=== PATIENT | male | born 1960 | race Caucasian/White ===

== ENCOUNTER → 2018-07-08 | Outpatient (CLI) | payer OTHER ==
--- NOTE | 2018-07-08 15:56 | US ---
EXAMINATION TYPE: US venous doppler duplex LE LT DATE OF EXAM: 07/08/2018 3:40 PM COMPARISON: US 01/30/2016 CLINICAL HISTORY: R60.0 LOCALIZED EDEMA. Difficult exam due to patient body habitus SIDE PERFORMED: Left TECHNIQUE: The lower extremity deep venous system is examined utilizing real time linear array sonog cheryl with graded compression, doppler sonography and color-flow sonography. VESSELS IMAGED: External Iliac Vein (EIV) Common Femoral Vein Deep Femoral Vein Greater Saphenous Vein * Femoral Vein Popliteal Vein Small Saphenous Vein * Proximal Calf Veins (* superficial vessels) Left Leg: Negative for DVT IMPRESSION: 1. No diagnostic evidence of DVT as visualized.
--- NOTE | 2018-07-08 16:11 | XR ---
EXAMINATION TYPE: XR chest 2V DATE OF EXAM: 07/08/2018 COMPARISON: 02/13/2017 TECHNIQUE: PA and lateral views submitted. HISTORY: Shortness of breath FINDINGS: The lungs are clear and there is no pneumothorax, pleural effusion, or focal pneumonia. Arthropathy of the AC joints. Bilateral pleural thickening. Mild hyperinflation correlate for COPD. Hypertrophic and degenerative change of the spine. IMPRESSION: 1. No acute process.
== END | disposition home or self-care (01) ==
LOC: RADUSWWP 15:17
PROVIDERS: ATTEND Family Medicine
DX: R60.0 Localized edema (principal)
CPT/HCPCS: 71046

== ENCOUNTER → 2018-10-22 | Outpatient (CLI) | payer OTHER ==
--- NOTE | 2018-10-22 20:20 | CONS ---
CONSULTATION DATE OF SERVICE: 10/22/2018 This patient is a 57-year-old gentleman who has been evaluated in the sleep center for possible obstructive sleep apnea-hypopnea syndrome. HISTORY OF PRESENT ILLNESS/SLEEP-WAKE EVALUATION: Patient usually goes to bed around 1 or 2 a.m. and gets up in the morning at 10 a.m. No problems with falling asleep, although he has a TV set in the bedroom. He sleeps on the side and back positions with loud snoring, witnessed episodes of stopped breathing during sleep and awakenings from sleep with dry mouth, choking, gasping for air, sleeptalking up to 4 times per night and up to 2 episodes of nocturia. During the night the patient has leg cramps, and also he has flail-like movements of his arms during sleep. No history of hypnagogic hallucinations, sleep paralysis or cataplexy. In the morning the patient wakes up tired, falling asleep during the day. [place] Sleepiness Scale is significantly increased at 17. Usually no dreams during naps. He does not feel refreshed after naps. He may take 2 naps a day. Problems with memory, irritability and depression during the day. PAST MEDICAL HISTORY: 1. Hypertension. 2. Diabetes. 3. Swelling of legs. 4. COPD. PAST SURGICAL HISTORY: 1. Cholecystectomy. 2. Right foot surgery. MEDICATIONS: 1. Metformin. 2. Lisinopril. 3. Furosemide. 4. Potassium supplement. 5. Fish oil. SOCIAL HISTORY: Negative for smoking or using alcohol. The patient never smoked. FAMILY HISTORY: Hypertension, heart problems, hyperlipidemia, emphysema, headaches, cancer, diabetes, acid reflux. REVIEW OF SYSTEMS: Multiple awakenings from sleep, sleepiness during the day, leg cramps, movements of arms during sleep. PHYSICAL EXAMINATION: GENERAL: A pleasant gentleman without distress. VITAL SIGNS: BP 152/92, HR 78, RR 18, height 5 feet 5 inches, weight 262.4, temperature 98.0, oxygen saturation at room air 96%. HEENT: PERRLA, EOMI. Evaluation of oropharynx showed tongue protrudes midline. Extremely low position of soft palate. Mallampati IV. Restriction of nasal breathing bilaterally. NECK: Supple. No JVD. Thyroid is not palpable. Wide neck; 20 inches in circumference. LUNGS: Clear to percussion and to auscultation. Good air exchange. No wheezing or rhonchi. HEART: S1, S2 regular. No murmurs, gallops or rubs. ABDOMEN: Obese. EXTREMITIES: No clubbing or cyanosis. SEBD TEACHER: Awake, alert, and oriented X3. Cranial nerves 2 to 7 intact. There is no fasciculation or atrophy. noted. No focal deficits observed. IMPRESSION: 1. Loud snoring, witnessed episodes of stopped breathing during sleep, extremely low soft palate, Mallampati IV, significant excessive daytime sleepiness, [place] Sleepiness Scale 17, wide neck, 20 inches in circumference; obstructive sleep apnea- hypopnea syndrome. 2. Obesity; body mass index 43.5. 3. Hypertension. 4. Kicking at night; periodic limb movements. 5. Some flail movements of arms during the night; possible REM-sleep behavioral disorder. 6. Status post cholecystectomy. 7. History of chronic obstructive pulmonary disease. 8. Status post right foot surgery. PLAN: 1. Polysomnography for evaluation of patient's breathing during sleep. 2. CPAP/BiPAP titration if sleep study confirms obstructive sleep apnea-hypopnea syndrome. 3. Preferable position during sleep on the side. 4. No driving if patient feels any sleepiness. 5. I will see patient for follow up visit to explain results of testing and following plan. Thank you very much for referring this patient for consultation. Sincerely, Skip Alonso MD, PhD, FAASM Diplomat of [place] [employer] [place] [employer] Person of [facility] [place] MMODL / IJN: [id number] /
== END | disposition home or self-care (01) ==
LOC: SLEEP 14:08
PROVIDERS: ATTEND Internal Medicine
DX: G47.33 Obstructive sleep apnea (adult) (pediatric) (principal); E66.9 Obesity, unspecified; I10 Essential (primary) hypertension; E11.9 Type 2 diabetes mellitus without complications; G47.61 Periodic limb movement disorder; Z68.41 Body mass index [BMI] 40.0-44.9, adult; Z87.09 Personal history of other diseases of the respiratory system; Z90.49 Acquired absence of other specified parts of digestive tract; Z98.890 Other specified postprocedural states; Z79.84 Long term (current) use of oral hypoglycemic drugs; Z79.899 Other long term (current) drug therapy
CPT/HCPCS: 99211

== ENCOUNTER → 2019-02-26 | Outpatient (CLI) | payer OTHER ==
--- NOTE | 2019-02-26 17:10 | PN ---
PROGRESS NOTE DATE OF SERVICE: 02/26/2019 This patient is a 58-year-old gentleman who has been followed in Sleep Center for treatment of obstructive sleep apnea-hypopnea syndrome. Recently the patient had a sleep study which showed obstructive sleep apnea-hypopnea syndrome with apnea-hypopnea index 29.4 and oxygen desaturation to 73%. Subsequently he was started on treatment with CPAP. According to the patient, he is able to use the CPAP equipment every night and at present no significant problems with his mask; but according to his , there is a leak from his mask. The patient did not bring his machine with him, so I cannot check it right now, but again, according to the patient, he feels better with the machine. [place] Sleepiness Scale today is still increased at 16. MEDICATIONS: 1. Metformin. 2. Lisinopril. 3. Furosemide. 4. Potassium supplement. PHYSICAL EXAMINATION: GENERAL: A pleasant patient in no distress. VITAL SIGNS: BP 146/88, HR 91, RR 16, weight 260.0, temperature 98.1, oxygen saturation at room air 94%. HEENT: PERRLA, EOMI. Evaluation of oropharynx showed tongue protrudes midline. Extremely low position of soft palate. Mallampati IV. NECK: Supple. No JVD. Thyroid is not palpable. LUNGS: Clear to percussion and to auscultation. Good air exchange. No wheezing or rhonchi. HEART: S1, S2 regular. No murmurs, gallops or rubs. ABDOMEN: Obese. EXTREMITIES: No clubbing or cyanosis. WATCHER LOOKOUT TOWER: Awake, alert, and oriented X3. Cranial nerves 2 to 7 intact. There is no fasciculation or atrophy. noted. No focal deficits observed. IMPRESSION: 1. Moderate, close to severe obstructive sleep apnea-hypopnea syndrome with apnea- hypopnea index 29.4 and oxygen desaturation to 73%. The patient was started on treatment with CPAP and is trying to use it every night, benefitting from treatment; feels better. 2. Obesity. 3. Diabetes mellitus. 4. Hypertension. 5. Severe periodic limb movements during titration and mild periodic limb movements during diagnostic night. 6. Chronic obstructive pulmonary disease. 7. History of arm movements before; possibly REM sleep behavior disorder. 8. Status post cholecystectomy. 9. Status post right foot surgery. PLAN: 1. Patient will continue to use CPAP equipment every night for the whole night. 2. Will check the possibility of using a different style of mask to prevent leaks. 3. Losing weight. 4. Sleep hygiene with regular time in bed for 7-1/2 to 8 hours. 5. No driving if feeling any sleepiness. 6. We will try to get information from [facility] with a reading from his machine. 7. Follow-up visit in 4-6 weeks. Thank you very much for allowing me to participate in the management of your patient. Sincerely, Skip Alonso MD, PhD, FAASM Diplomat of [place] [employer] [employer] [facility]pper of [facility] [place] MMODL / IJN: [id number] /
== END | disposition home or self-care (01) ==
LOC: SLEEP 14:47
PROVIDERS: ATTEND Internal Medicine
DX: G47.33 Obstructive sleep apnea (adult) (pediatric) (principal); E11.9 Type 2 diabetes mellitus without complications; I10 Essential (primary) hypertension; J44.9 Chronic obstructive pulmonary disease, unspecified; E66.9 Obesity, unspecified; Z90.49 Acquired absence of other specified parts of digestive tract; Z99.89 Dependence on other enabling machines and devices; Z79.84 Long term (current) use of oral hypoglycemic drugs; Z79.899 Other long term (current) drug therapy; Z98.890 Other specified postprocedural states

== ENCOUNTER → 2019-04-07 | Outpatient (CLI) | payer OTHER ==
[2019-04-07 11:14] LABS: Basophils # (A) 0.1 k/uL (0-0.2); Basophils % (A) 1 %; Eosinophils # (A) 0.4 k/uL (0-0.7); Eosinophils % (A) 5 %; HCT 40.9 % (39.0-53.0); Lymphocytes # (A) 1.6 k/uL (1.0-4.8); Lymphocytes % (A) 19 %; MCH 30.1 pg (25.0-35.0); MCHC 34.2 g/dL (31.0-37.0); Mean Platelet Volume 7.7; Monocytes # (A) 0.5 k/uL (0-1.0); Monocytes % (A) 6 %; Neutrophils # (A) 5.4 k/uL (1.3-7.7); Neutrophils % (A) 67 %; Platelet Count 166 k/uL (150-450); RBC 4.64 m/uL (4.30-5.90); RDW 12.5 % (11.5-15.5); WBC 8.1 k/uL (3.8-10.6)
[2019-04-07 16:58] LABS: African American GFR (CKD) 70.7 (60.0-200.0); Albumin 4.6 g/dL (3.80-4.90); Albumin/Globulin Ratio 2.19 (1.60-3.17); Anion Gap 10.6 mmol/L (4.00-12.00); BUN/Creat Ratio 26.15 Ratio (12.00-20.00); Calcium 9.5 mg/dL (8.7-10.3); Carbon Dioxide 25.4 mmol/L (21.6-31.8); Globulin 2.1 g/dL (1.6-3.3); LDL Cholesterol,Calculated 90.2 mg/dL (0.0-131.0); Potassium 4.2 mmol/L (3.5-5.5); Total Bilirubin 0.7 mg/dL (0.3-1.2); Total Protein 6.7 g/dL (6.2-8.2); VLDL Calculation 57.8 mg/dL (5.00-40.00)
== END | disposition home or self-care (01) ==
LOC: LABWHC1 10:16
PROVIDERS: ATTEND Physician Assistant
DX: E11.9 Type 2 diabetes mellitus without complications (principal)
CPT/HCPCS: 36415; 80053; 80061; 83036; 85025

== ENCOUNTER → 2022-09-19 | Outpatient (CLI) | payer OTHER ==
--- NOTE | 2022-09-19 15:34 | US ---
EXAMINATION TYPE: US abdomen complete DATE OF EXAM: 09/19/2022 COMPARISON: NONE CLINICAL INDICATION: Male, 61 years old with history of R94.5; Abnormal labs. GB removed x 7 years a go. TECHNIQUE: Multiple sonographic images of the abdomen are obtained. FINDINGS: EXAM MEASUREMENTS: Liver Length: 14.9 cm CBD: 0.5 cm Spleen: 12.7 cm Right Kidney: 9.9 x 5.0 x 5.5 cm Left Kidney: 11.4 x 5.1 x 5.5 cm Pancreas: Head and tail obscured by overlying bowel gas, echogenic in appearance Liver: wnl Gallbladder: Surgically absent Evidence for sonographic Gannon's sign: neg CBD: wnl Spleen: wnl Right Kidney: No hydronephrosis or masses seen Left Kidney: Upper lateral hypoechoic exophytic lesion= 2.8 x 2.8 x 2.5 cm . This is not a simple cy st. Upper IVC: limited visualization Abd Aorta: Mid and distal obscured by overlying bowel gas IMPRESSION: 1. Hypoechoic lesion superior pole left kidney. Additional workup with contrast CT is recommended.
[2022-09-19 16:02] LABS: ALT 106 U/L (10-49); AST 45 U/L (14-35); Albumin 4.5 d/dL (3.8-4.9); Albumin/Globulin Ratio 1.61 Ratio (1.60-3.17); Alkaline Phosphatase 128 U/L (41-126); BUN/Creat Ratio 18.62 Ratio (12.00-20.00); Blood Urea Nitrogen 24.2 mg/dL (9.0-27.0); Calcium 9.4 mg/dL (8.7-10.3); Chloride 104 mmol/L (96-109); Chol/HDL Ratio 3.49 Ratio; Globulin 2.8 d/dL (1.6-3.3); Glucose 121 mg/dL (70-110); LDL Cholesterol,Calculated 70.1 mg/dL (0.0-131.0); Potassium 4.3 mmol/L (3.5-5.5); Sodium 141 mmol/L (135-145); T4, Free (Free Thyroxine) 1.12 ng/dL (0.80-1.80); Total Bilirubin 0.5 mg/dL (0.3-1.2); Total Protein 7.3 d/dL (6.2-8.2)
== END | disposition home or self-care (01) ==
LOC: RADUSWWP 06:49
PROVIDERS: ATTEND Family Medicine
DX: Z12.5 Encounter for screening for malignant neoplasm of prostate (principal); E78.5 Hyperlipidemia, unspecified; E11.9 Type 2 diabetes mellitus without complications; N28.89 Other specified disorders of kidney and ureter; R94.5 Abnormal results of liver function studies
CPT/HCPCS: 76700; 80053; 80061; 83036; 84153; 84439; 84443; 85025

== ENCOUNTER → 2022-09-29 | Outpatient (CLI) | payer OTHER ==
[2022-09-29 23:01] LABS: Basophils # (A) 0.07 X 10*3/uL (0.00-0.10); Basophils % (A) 0.9 %; Eosinophils # (A) 0.26 X 10*3/uL (0.04-0.35); Eosinophils % (A) 3.3 %; HCT 45.1 % (39.6-50.0); HGB 14.6 d/dL (12.0-15.0); Lymphocytes # (A) 1.86 X 10*3/uL (0.90-5.00); Lymphocytes % (A) 23.5 %; MCH 29.3 pg (27.0-32.0); MCHC 32.4 d/dL (32.0-37.0); MCV 90.6 FL (80.0-97.0); Mean Platelet Volume 11.1 FL (9.5-12.2); Monocytes # (A) 0.73 X 10*3/uL (0.20-1.00); Monocytes % (A) 9.2 %; NRBC Per 100 WBC 0 X 10*3/uL (0.00-0.01); Neutrophils # (A) 4.96 X 10*3/uL (1.80-7.70); Neutrophils % (A) 62.5 %; Platelet Count 129 X 10*3/uL (140-440); RBC 4.98 X 10*6/uL (4.40-5.60); WBC 7.93 X 10*3/uL (4.50-10.00)
== END | disposition home or self-care (01) ==
LOC: LABWHC1 11:05
PROVIDERS: ATTEND Family Medicine
DX: E78.5 Hyperlipidemia, unspecified (principal)
CPT/HCPCS: 36415; 85025

== ENCOUNTER → 2022-11-30 | Outpatient (CLI) | payer OTHER ==
[2022-11-30 12:34] LABS: African American GFR (CKD) 59 (>60 ml/min/1.73 sqM); Blood Urea Nitrogen 28 mg/dL (9-20); Non-African American GFR(CKD) 51 (>60 ml/min/1.73 sqM)
--- NOTE | 2022-12-02 11:43 | CT ---
EXAMINATION TYPE: CT abdomen w con DATE OF EXAM: 11/30/2022 COMPARISON: Ultrasound 09/19/2022 HISTORY: 62-year-old male N28.89, left renal mass TECHNIQUE: Contiguous axial scanning of the abdomen following administration of 100 ml Isovue 300 IV contrast. Delayed images through the kidneys and coronal/sagittal reconstructions performed. CT DLP: 1759.4 mGycm Automated exposure control for dose reduction was used. FINDINGS: Heart normal size without pericardial effusion. Hazy atelectasis in the lower lungs without pleural effusion. No focal liver lesion or biliary ductal dilatation. Portal venous system is patent. Cholecystectomy c lips. Slight thickening of the adrenal glands without discrete nodularity. Right kidney, spleen, and pancreas within normal limits. There is an exophytic cortical lesion posterior left kidney measuring 2.8 cm that shows no enhancemen t and low attenuation compatible with a benign cortical cyst. No dilated small bowel, free fluid, or free air. No mesenteric or retroperitoneal lymphadenopathy. Mo derate stool burden. Left-sided colonic diverticulosis. No pericolic inflammatory change. Moderately redundant sigmoid colon. Pelvis not imaged. Bones: Facet arthropathy lumbar spine and moderate degenerative disc disease L5-S1. IMPRESSION: 1. EXOPHYTIC CORTICAL LESION POSTERIOR LEFT KIDNEY MEASURING 2.8 CM CORRESPONDING TO THE ULTRASOUND F INDING. FINDINGS ARE COMPATIBLE WITH A BENIGN RENAL CORTICAL CYST. 2. MODERATE STOOL BURDEN. LEFT-SIDED COLONIC DIVERTICULOSIS.
== END | disposition home or self-care (01) ==
LOC: RADCTMAIN 10:51
PROVIDERS: ATTEND Family Medicine
DX: N28.89 Other specified disorders of kidney and ureter (principal); K57.30 Diverticulosis of large intestine without perforation or abscess without bleeding
CPT/HCPCS: 82565; 84520; 74160; 36415; Q9967

== ENCOUNTER 2023-06-03 22:50 | Inpatient (IN) | payer OTHER ==
--- NOTE | 2023-06-03 23:24 | XR ---
EXAMINATION TYPE: XR chest 2V DATE OF EXAM: 06/03/2023 COMPARISON: Chest x-ray July 08, 2018 HISTORY: Cough TECHNIQUE: Frontal and lateral views of the chest are obtained. FINDINGS: There is no suspicious new focal air space opacity, pleural effusion, or pneumothorax seen . The cardiac silhouette size remains within normal limits. The osseous structures are intact. IMPRESSION: No acute pulmonary infiltrate. No significant change from prior.
--- NOTE | 2023-06-04 00:01 | ED ---
General Adult HPI - General Chief complaint: Shortness of Breath Stated complaint: Difficulty Breathing, chills, dry mouth, fatigue Time Seen by Provider: 06/03/23 23:38 Source: patient, RN notes reviewed, old records reviewed Mode of arrival: ambulatory Limitations: no limitations - History of Present Illness Initial comments: 62-year-old male presenting with fatigue, chills, shortness of breath. Symptoms have been present for the past several days. History of hypertension and diabetes. No history of CAD. No history of DVT or PE. Patient reports fatigue and generalized weakness as well. He has had some intermittent central chest pain as well. Patient also complains of cloudy urine and dysuria. No abdominal pain. - Related Data Home Medications Medication Instructions Recorded Confirmed lisinopriL [Prinivil] 20 mg PO HS 12/31/14 08/12/18 metFORMIN HCL [Glucophage] 500 mg PO BID 08/12/18 08/12/18 Allergies Allergy/AdvReac Type Severity Reaction Status Date / Time No Known Allergies Allergy Verified 06/03/23 23:05 Review of Systems ROS Statement: Those systems with pertinent positive or pertinent negative responses have been documented in the HPI. ROS Other: All systems not noted in ROS Statement are negative. Past Medical History Past Medical History: Diabetes Mellitus, Hypertension Additional Past Medical History / Comment(s): NAUSEA, BLOOD IN STOOL History of Any Multi-Drug Resistant Organisms: MRSA Date of last positivie culture/infection: 02/22/21 MDRO Source:: MRSA LEG Past Surgical History: Cholecystectomy Past Anesthesia/Blood Transfusion Reactions: No Reported Reaction Past Psychological History: No Psychological Hx Reported Smoking Status: Never smoker Past Alcohol Use History: Rare Past Drug Use History: None Reported - Past Family History Brother(s) Family Medical History: Cancer Additional Family Medical History / Comment(s): PROSTATE Father Additional Family Medical History / Comment(s): AORTIC ANEURYSM General Exam Limitations: no limitations General appearance: alert, in no apparent distress Head exam: Present: atraumatic, normocephalic Eye exam: Present: normal appearance, PERRL ENT exam: Present: normal exam Neck exam: Present: normal inspection. Absent: tenderness, meningismus Respiratory exam: Present: decreased breath sounds. Absent: respiratory dist ress, wheezes Cardiovascular Exam: Present: normal rhythm, tachycardia Extremities exam: Present: normal capillary refill, pedal edema Neurological exam: Present: alert, oriented X3, CN II-XII intact. Absent: motor sensory deficit Psychiatric exam: Present: normal affect, normal mood Skin exam: Present: warm, dry, intact. Absent: cyanosis, diaphoretic Course Vital Signs 06/03/23 06/04/23 06/04/23 22:57 00:26 00:30 Temperature 98.2 F Pulse Rate 132 H 125 H 118 H Respiratory 24 24 26 H Rate Blood Pressure 126/81 115/74 115/74 O2 Sat by Pulse 95 95 96 Oximetry 06/04/23 06/04/23 06/04/23 00:32 01:52 02:00 Temperature 100.3 F H 100.4 F H Pulse Rate 112 H 111 H Respiratory 24 24 Rate Blood Pressure 93/60 96/52 O2 Sat by Pulse 97 95 Oximetry 06/04/23 02:30 Temperature Pulse Rate 107 H Respiratory 25 H Rate Blood Pressure 94/62 O2 Sat by Pulse 97 Oximetry Medical Decision Making - Medical Decision Making Was pt. sent in by a medical professional or institution (JOSUE Ortiz, COMPOUND WORKER, urgent care, hospital, or long term...) When possible be specific @ -No Did you speak to anyone other than the patient for history (EMS, parent, family, police, friend...)? What history was obtained from this source @ -No Did you review nursing and triage notes (agree or disagree)? Why? @ -I reviewed and agree with nursing and triage notes Were old charts reviewed (outside hosp., previous admission, EMS record, old EKG, old radiological studies, urgent care reports/EKG's, long term records)? Report findings @ -No old charts were reviewed Differential Diagnosis (chest pain, altered mental status, abdominal pain women, abdominal pain men, vaginal bleeding, weakness, fever, dyspnea, syncope, headache, dizziness, GI bleed, back pain, seizure, CVA, palpatations, mental health, musculoskeletal)? @ -Differential Weakness: Hypoglycemia, shock, sepsis, hyponatremia, anemia, infection, UT, ETOH, adverse medicine reaction, overdose, stroke, this is not meant to be an all-inclusive list. EKG interpreted by me (3pts min.). @ -[Sinus tachycardia, right bundle branch block, rate of 125, ME interval 145, QRS duration [address] segment elevation. X-rays interpreted by me (1pt min.). @ -Chest x-ray negative for acute cardiopulmonary findings CT interpreted by me (1pt min.). @CT angiogram chest negative for pulmonary embolism U/S interpreted by me (1pt. min.). @ -[None done What testing was considered but not performed or refused? (CT, X-rays, U/S, labs)? Why? @ -None What meds were considered but not given or refused? Why? @ -None Did you discuss the management of the patient with other professionals (professionals i.e. , PA, COMPOUND WORKER, lab, RT, psych nurse, social media editor, chargemaster analyst, teacher, employee service officer, shoe caser)? Give summary @ -[EMH. Was smoking cessation discussed for >3mins.? @ -No Was critical care preformed (if so, how long)? @ -[Yes, 35 minutes Were there social determinants of health that impacted care today? How? (Homelessness, low income, unemployed, alcoholism, drug addiction, transportation, low edu. Level, literacy, decrease access to med. care, detention, rehab)? @ -No Was there de-escalation of care discussed even if they declined (Discuss DNR or withdrawal of care, Hospice)? DNR status @ -No What co-morbidities impacted this encounter? (DM, HTN, Smoking, COPD, CAD, Cancer, CVA, ARF, Chemo, Hep., AIDS, mental health diagnosis, sleep apnea, morbid obesity)? @Hypertension and diabetes.] Was patient admitted / discharged? Hospital course, mention meds given and route, prescriptions, significant lab abnormalities, going to OR and other pertinent info. @ -62-year-old male presenting with weakness, chills, dyspnea. Patient is tachycardic with low-grade fever. Workup is initiated he has a significant leukocytosis at 18. Stable hemoglobin. Mild lactic acid, mild transaminitis. Troponin and BNP are negative. D-dimer is elevated at 1.8. CT angiogram is negative for pulmonary embolism. Patient treated with antipyretics, IV fluids and IV antibiotics. He has had dysuria as well as cloudy urine and urinalysis is positive. Covered with ceftriaxone. Admitted for dehydration, UTI, sepsis. Undiagnosed new problem with uncertain prognosis? @ -No Drug Therapy requiring intensive monitoring for toxicity (Heparin, Nitro, Insulin, Cardizem)? @ -No Were any procedures done? @ -No Diagnosis/symptom? @ -[UTI with sepsis Acute, or Chronic, or Acute on Chronic? @ -Default Uncomplicated (without systemic symptoms) or Complicated (systemic symptoms)? @ -[Complicated Side effects of treatment? @ -No Exacerbation, Progression, or Severe Exacerbation? @ -No Poses a threat to life or bodily function? How? (Chest pain, USA, UT, pneumonia, PE, COPD, DKA, ARF, appy, cholecystitis, CVA, Diverticulitis, Homicidal, Suicidal, threat to staff... and all critical care pts) @ -[Yes, sepsis - Lab Data Result diagrams: 06/04/23 00:15 06/04/23 00:15 Lab Results 06/04/23 06/04/23 06/04/23 Range/Units 00:15 00:15 00:15 WBC 18.5 H (3.8-10.6) k/uL RBC 4.69 (4.30-5.90) m/uL Hgb 14.6 (13.0-17.5) gm/dL Hct 42.5 (39.0-53.0) % MCV 90.6 (80.0-100.0) fL MCH 31.0 (25.0-35.0) pg MCHC 34.2 (31.0-37.0) g/dL RDW 12.3 (11.5-15.5) % Plt Count 122 L (150-450) k/uL MPV 8.0 Neutrophils % 95 % Lymphocytes % 2 % Monocytes % 3 % Eosinophils % 1 % Basophils % 0 % Neutrophils # 17.5 H (1.3-7.7) k/uL Lymphocytes # 0.3 L (1.0-4.8) k/uL Monocytes # 0.5 (0-1.0) k/uL Eosinophils # 0.1 (0-0.7) k/uL Basophils # 0.1 (0-0.2) k/uL PT 10.4 (10.0-12.5) sec INR 0.9 (<1.2) APTT 23.2 (22.0-30.0) sec D-Dimer 1.86 H (<0.60) mg/L FEU Sodium (137-145) mmol/L Potassium (3.5-5.1) mmol/L Chloride (98-107) mmol/L Carbon Dioxide (22-30) mmol/L Anion Gap mmol/L BUN (9-20) mg/dL Creatinine (0.66-1.25) mg/dL Est GFR (CKD-EPI)AfAm (>60 ml/min/1.73 sqM) Est GFR (CKD-EPI)NonAf (>60 ml/min/1.73 sqM) Glucose (74-99) mg/dL Lactic Ac Sepsis Rflx Plasma Lactic Acid Corey (0.7-2.0) mmol/L Calcium (8.4-10.2) mg/dL Magnesium (1.6-2.3) mg/dL Total Bilirubin (0.2-1.3) mg/dL AST (17-59) U/L ALT (4-49) U/L Alkaline Phosphatase (38-126) U/L Troponin I (0.000-0.034) ng/mL NT-Pro-B Natriuret Pep pg/mL Total Protein (6.3-8.2) g/dL Albumin (3.5-5.0) g/dL Urine Color Urine Appearance (Clear) Urine pH (5.0-8.0) Ur Specific [place] (1.001-1.035) Urine Protein (Negative) Urine Glucose (UA) (Negative) Urine Ketones (Negative) Urine Blood (Negative) Urine Nitrite (Negative) Urine Bilirubin (Negative) Urine Urobilinogen (<2.0) mg/dL Ur Leukocyte Esterase (Negative) Urine RBC (0-5) /hpf Urine WBC (0-5) /hpf Ur Squamous Epith Cells (0-4) /hpf Urine Bacteria (None) /hpf Urine Mucus (None) /hpf Influenza Type A (PCR) Not Detected (Not Detectd) Influenza Type B (PCR) Not Detected (Not Detectd) RSV (PCR) Not Detected (Not Detectd) SARS-CoV-2 (PCR) Not Detected (Not Detectd) 06/04/23 06/04/23 06/04/23 Range/Units 00:15 00:15 00:15 WBC (3.8-10.6) k/uL RBC (4.30-5.90) m/uL Hgb (13.0-17.5) gm/dL Hct (39.0-53.0) % MCV (80.0-100.0) fL MCH (25.0-35.0) pg MCHC (31.0-37.0) g/dL RDW (11.5-15.5) % Plt Count (150-450) k/uL MPV Neutrophils % % Lymphocytes % % Monocytes % % Eosinophils % % Basophils % % Neutrophils # (1.3-7.7) k/uL Lymphocytes # (1.0-4.8) k/uL Monocytes # (0-1.0) k/uL Eosinophils # (0-0.7) k/uL Basophils # (0-0.2) k/uL PT (10.0-12.5) sec INR (<1.2) APTT (22.0-30.0) sec D-Dimer (<0.60) mg/L FEU Sodium 130 L (137-145) mmol/L Potassium 4.4 (3.5-5.1) mmol/L Chloride 100 (98-107) mmol/L Carbon Dioxide 20 L (22-30) mmol/L Anion Gap 10 mmol/L BUN 26 H (9-20) mg/dL Creatinine 1.13 (0.66-1.25) mg/dL Est GFR (CKD-EPI)AfAm 82 (>60 ml/min/1.73 sqM) Est GFR (CKD-EPI)NonAf 71 (>60 ml/min/1.73 sqM) Glucose 184 H (74-99) mg/dL Lactic Ac Sepsis Rflx Plasma Lactic Acid Corey 2.4 H* (0.7-2.0) mmol/L Calcium 9.0 (8.4-10.2) mg/dL Magnesium 1.4 L (1.6-2.3) mg/dL Total Bilirubin 1.0 (0.2-1.3) mg/dL AST 57 (17-59) U/L ALT 118 H (4-49) U/L Alkaline Phosphatase 127 H (38-126) U/L Troponin I <0.012 (0.000-0.034) ng/mL NT-Pro-B Natriuret Pep 126 pg/mL Total Protein 6.9 (6.3-8.2) g/dL Albumin 4.0 (3.5-5.0) g/dL Urine Color Urine Appearance (Clear) Urine pH (5.0-8.0) Ur Specific [place] (1.001-1.035) Urine Protein (Negative) Urine Glucose (UA) (Negative) Urine Ketones (Negative) Urine Blood (Negative) Urine Nitrite (Negative) Urine Bilirubin (Negative) Urine Urobilinogen (<2.0) mg/dL Ur Leukocyte Esterase (Negative) Urine RBC (0-5) /hpf Urine WBC (0-5) /hpf Ur Squamous Epith Cells (0-4) /hpf Urine Bacteria (None) /hpf Urine Mucus (None) /hpf Influenza Type A (PCR) (Not Detectd) Influenza Type B (PCR) (Not Detectd) RSV (PCR) (Not Detectd) SARS-CoV-2 (PCR) (Not Detectd) 06/04/23 06/04/23 06/04/23 Range/Units 00:41 03:24 03:38 WBC (3.8-10.6) k/uL RBC (4.30-5.90) m/uL Hgb (13.0-17.5) gm/dL Hct (39.0-53.0) % MCV (80.0-100.0) fL MCH (25.0-35.0) pg MCHC (31.0-37.0) g/dL RDW (11.5-15.5) % Plt Count (150-450) k/uL MPV Neutrophils % % Lymphocytes % % Monocytes % % Eosinophils % % Basophils % % Neutrophils # (1.3-7.7) k/uL Lymphocytes # (1.0-4.8) k/uL Monocytes # (0-1.0) k/uL Eosinophils # (0-0.7) k/uL Basophils # (0-0.2) k/uL PT (10.0-12.5) sec INR (<1.2) APTT (22.0-30.0) sec D-Dimer (<0.60) mg/L FEU Sodium (137-145) mmol/L Potassium (3.5-5.1) mmol/L Chloride (98-107) mmol/L Carbon Dioxide (22-30) mmol/L Anion Gap mmol/L BUN (9-20) mg/dL Creatinine (0.66-1.25) mg/dL Est GFR (CKD-EPI)AfAm (>60 ml/min/1.73 sqM) Est GFR (CKD-EPI)NonAf (>60 ml/min/1.73 sqM) Glucose (74-99) mg/dL Lactic Ac Sepsis Rflx Y Plasma Lactic Acid Corey 2.5 H* (0.7-2.0) mmol/L Calcium (8.4-10.2) mg/dL Magnesium (1.6-2.3) mg/dL Total Bilirubin (0.2-1.3) mg/dL AST (17-59) U/L ALT (4-49) U/L Alkaline Phosphatase (38-126) U/L Troponin I (0.000-0.034) ng/mL NT-Pro-B Natriuret Pep pg/mL Total Protein (6.3-8.2) g/dL Albumin (3.5-5.0) g/dL Urine Color Light Yellow Urine Appearance Clear (Clear) Urine pH 6.0 (5.0-8.0) Ur Specific [place] 1.050 H (1.001-1.035) Urine Protein Trace H (Negative) Urine Glucose (UA) Negative (Negative) Urine Ketones Negative (Negative) Urine Blood Moderate H (Negative) Urine Nitrite Negative (Negative) Urine Bilirubin Negative (Negative) Urine Urobilinogen <2.0 (<2.0) mg/dL Ur Leukocyte Esterase Large H (Negative) Urine RBC 22 H (0-5) /hpf Urine WBC 30 H (0-5) /hpf Ur Squamous Epith Cells 7 H (0-4) /hpf Urine Bacteria Rare H (None) /hpf Urine Mucus Rare H (None) /hpf Influenza Type A (PCR) (Not Detectd) Influenza Type B (PCR) (Not Detectd) RSV (PCR) (Not Detectd) SARS-CoV-2 (PCR) (Not Detectd) Disposition Clinical Impression: UTI (urinary tract infection), Sepsis Disposition: ADMITTED IP TO THIS HOSP Condition: Stable Is patient prescribed a controlled substance at d/c from ED?: No Referrals: Rui Spencer MD [Primary Care Provider] - 1-2 days Time of Disposition: 04:23
[2023-06-04] MEDS: ACETAMINOPHEN TAB 500 MG TAB PO STA ×2 (00:27→13:49)
[2023-06-04 00:44] LABS: INR 0.9 (<1.2); Partial Thromboplastin Time 23.2 sec (22.0-30.0); Prothrombin Time 10.4 sec (10.0-12.5)
[2023-06-04 00:49] LABS: ALT 118 U/L (4-49); AST 57 U/L (17-59); African American GFR (CKD) 82 (>60 ml/min/1.73 sqM); Alkaline Phosphatase 127 U/L (38-126); Blood Urea Nitrogen 26 mg/dL (9-20); Carbon Dioxide 20 mmol/L (22-30); Glucose 184 mg/dL (74-99); Magnesium 1.4 mg/dL (1.6-2.3); Non-African American GFR(CKD) 71 (>60 ml/min/1.73 sqM); Total Protein 6.9 g/dL (6.3-8.2)
[2023-06-04 00:57] LABS: Basophils # (A) 0.1 k/uL (0-0.2); Basophils % (A) 0 %; Eosinophils # (A) 0.1 k/uL (0-0.7); Eosinophils % (A) 1 %; HCT 42.5 % (39.0-53.0); HGB 14.6 gm/dL (13.0-17.5); Lymphocytes # (A) 0.3 k/uL (1.0-4.8); Lymphocytes % (A) 2 %; MCHC 34.2 g/dL (31.0-37.0); MCV 90.6 fL (80.0-100.0); Monocytes # (A) 0.5 k/uL (0-1.0); Monocytes % (A) 3 %; NT-Pro-B-Type Natriuretic Pept 126 pg/mL; Neutrophils # (A) 17.5 k/uL (1.3-7.7); Neutrophils % (A) 95 %; Platelet Count 122 k/uL (150-450); RBC 4.69 m/uL (4.30-5.90); RDW 12.3 % (11.5-15.5); WBC 18.5 k/uL (3.8-10.6)
[2023-06-04 01:05] LABS: Anion Gap 10 mmol/L; Chloride 100 mmol/L (98-107); Potassium 4.4 mmol/L (3.5-5.1); Sodium 130 mmol/L (137-145)
--- NOTE | 2023-06-04 01:46 | CT ---
EXAMINATION TYPE: CT angio chest DATE OF EXAM: 06/04/2023 COMPARISON: Chest x-ray one day earlier HISTORY: elevated d-dimer with difficulty in breathing. CT DLP: 827.2 mGycm. Automated Exposure Control for Dose Reduction was Utilized. CONTRAST: CTA scan of the thorax is performed with IV Contrast, patient injected with 100 mL of Isovue 370, pul monary embolism protocol. MIP Images are created on CT scanner and reviewed. FINDINGS: LUNGS: Mild bibasilar linear scarring and/or atelectasis. No suspicious focal consolidation. No pleur al effusion or pneumothorax seen bilaterally. MEDIASTINUM: Suboptimal study with most dense contrast in the SVC. No central acute pulmonary embolis m. Cannot entirely exclude peripheral pulmonary emboli in this exam. Ascending aorta shows some contr ast opacification. No aneurysm or dissection. Coronary artery calcification is present. There are no greater than 1 cm hilar or mediastinal lymph nodes. Small to tiny anterior pericardial effusion is se en. No pericardial effusion. OTHER: Liver is diffusely low dense consistent with fatty infiltrative hepatocellular disease. Cholec ystectomy clips are present. Slight scoliotic curvature with multilevel spurring the spine. IMPRESSION: 1. Suboptimal study without central acute pulmonary embolism. Smaller peripheral pulmonary emboli not entirely excluded. 2. No suspicious acute pulmonary process.
[2023-06-04] MEDS: SODIUM CHLORIDE 0.9% 1,000 ML IV ONE ×2 (01:54→15:15)
[2023-06-04] MEDS: SODIUM CHLORIDE 0.9% 1,000 ML IV SCH (01:55)
[2023-06-04 04:00] LABS: Appearance,Urine Clear (Clear); Bacteria,Urine Rare /hpf; Bilirubin,Urine Negative (Negative); Blood,Urine Moderate (Negative); Color,Urine Light Yellow; Glucose,Urine (UA) Negative (Negative); Ketones,Urine Negative (Negative); Leukocyte Esterase,Urine Large (Negative); Mucus,Urine Rare /hpf; Nitrite,Urine Negative (Negative); Protein,Urine Trace (Negative); RBC,Urine 22 /hpf (0-5); Squamous Epithelial Cell,Urine 7 /hpf (0-4); Urobilinogen,Urine <2.0 mg/dL (<2.0); WBC,Urine 30 /hpf (0-5)
[2023-06-04] MEDS ORDERED: ONDANSETRON 4 MG/2 ML VIAL IVP PRN (04:20)
[2023-06-04] MEDS ORDERED: NALOXONE 0.4 MG/ML 1 ML VIAL IV PRN (04:20)
[2023-06-04] MEDS ORDERED: CALCIUM CARBONATE 500 MG CHEWABLE PO PRN (09:23)
[2023-06-04] MEDS ORDERED: DEXTROSE 50% SYRINGE 50 ML IVP PRN ×2 (09:23)
[2023-06-04] MEDS: predniSONE 20 MG TAB PO SCH (10:37)
[2023-06-04] MEDS: guaiFENesin 600 MG TABLET.ER PO SCH (10:37)
[2023-06-04 10:47] LABS: Glucose,Whole Blood 166 mg/dL (70-110)
[2023-06-04 11:39] LABS: Glucose,Whole Blood 138 mg/dL (70-110)
[2023-06-04] MEDS: IPRATROPIUM-ALBUTEROL 3 ML NEB INHALATION PRN (11:49)
[2023-06-04] MEDS: INSULIN ASPART (NovoLOG) 100 UNIT/ML VIAL SQ SCH (12:37)
--- NOTE | 2023-06-04 12:41 | P.HPIM ---
History of Present Illness H&P Date: 06/04/23 Chief Complaint: Generalized weakness, chills, fatigue shortness of breath * 62-year-old gentleman with past medical history significant for diabetes mellitus, history of hypertension, COPD presents to the emergency department with complaints of fatigue, chills, shortness of breath, malaise generalized weakness. Patient states he had been having intermittent symptoms ongoing for few days. Patient did not seek medical attention since he had minimal improvement. Patient has also been complaining of dysuria and noted to have cloudy urine. * At the time of presentation in ER patient was noted to be hypotensive with systolic pressure of 96 and pulse of 102. Initial workup included WBC count of 18.5 hemoglobin 14.6 platelet count of 122 with elevated neutrophil bands. Serum chemistry shows sodium 130 potassium 4.4, dioxide 20 BUN 26 creatinine 1.13 glucose 184 magnesium of 1.4 patient had initial troponin done which was negative * Urinalysis obtained showed moderate amount of blood large leukocyte esterase urine bacteria * Patient tested negative for influenza RSV and COVID * Patient was given fluid bolus started on IV antibiotic and admitted to medical floor for further evaluation. REVIEW OF SYSTEMS: Shortness of breath, fatigue, dysuria, weakness CONSTITUTIONAL: Shortness of breath, fatigue, dysuria, weakness HEENT: No recent visual problems or hearing problems. Denied any sore throat. CARDIOVASCULAR: No chest pain, orthopnea, PND, no palpitations, no syncope. PULMONARY: Shortness of breath, fatigue, dysuria, weakness GASTROINTESTINAL: No diarrhea, no nausea, no vomiting, no abdominal pain. NEUROLOGICAL: No headaches, no weakness, no numbness. HEMATOLOGICAL: Denies any bleeding or petechiae. GENITOURINARY: Denies any burning micturition, frequency, or urgency. MUSCULOSKELETAL/RHEUMATOLOGICAL: Denies any joint pain, swelling, or any muscle pain. ENDOCRINE: Denies any polyuria or polydipsia. PHYSICAL EXAMINATION: GENERAL: The patient is alert and oriented x3, ill appearance, nasal cannula in place HEENT: Pupils are round and equally reacting to light. EOMI. No scleral icterus. . Normocephalic, atraumatic. CARDIOVASCULAR: S1 and S2 present. No murmurs, rubs, or gallops. PULMONARY: Chest is clear to auscultation, no wheezing or crackles. ABDOMEN: Soft, distention, suprapubic discomfort MUSCULOSKELETAL: No joint swelling or deformity. EXTREMITIES: No cyanosis, clubbing, or pedal edema. NEUROLOGICAL: Gross neurological examination did not reveal any focal deficits. SKIN: No rashes. Past Medical History Past Medical History: Diabetes Mellitus, Hypertension Additional Past Medical History / Comment(s): NAUSEA, BLOOD IN STOOL History of Any Multi-Drug Resistant Organisms: MRSA Date of last positivie culture/infection: 02/22/21 MDRO Source:: MRSA LEG Past Surgical History: Cholecystectomy Past Anesthesia/Blood Transfusion Reactions: No Reported Reaction Past Psychological History: No Psychological Hx Reported Smoking Status: Never smoker Past Alcohol Use History: Rare Past Drug Use History: None Reported - Past Family History Brother(s) Family Medical History: Cancer Additional Family Medical History / Comment(s): PROSTATE Father Additional Family Medical History / Comment(s): AORTIC ANEURYSM Medications and Allergies Home Medications Medication Instructions Recorded Confirmed Type Atorvastatin [Lipitor] 20 mg PO DAILY 06/04/23 06/04/23 History Losartan Potassium 100 mg PO DAILY 06/04/23 06/04/23 History Meloxicam [Mobic] 15 mg PO DAILY 06/04/23 06/04/23 History oxyBUTYnin chloride [Ditropan] 5 mg PO BID 06/04/23 06/04/23 History Allergies Allergy/AdvReac Type Severity Reaction Status Date / Time No Known Allergies Allergy Verified 06/04/23 09:48 Physical Exam Vitals: Vital Signs Temp Pulse Resp BP Pulse Ox 06/04/23 07:30 96 18 99/65 98 06/04/23 06:52 89 24 91/56 99 06/04/23 05:49 99.4 F 06/04/23 05:30 110 H 24 140/73 98 06/04/23 05:00 102 H 26 H 96/62 100 06/04/23 04:00 94 18 103/61 98 06/04/23 03:00 105 H 22 94/62 95 06/04/23 02:30 107 H 25 H 94/62 97 06/04/23 02:00 111 H 24 96/52 95 06/04/23 01:52 100.4 F H 112 H 24 93/60 97 06/04/23 00:32 100.3 F H 06/04/23 00:30 118 H 26 H 115/74 96 06/04/23 00:26 125 H 24 115/74 95 06/03/23 22:57 98.2 F 132 H 24 126/81 95 Intake and Output 06/03/23 06/04/23 06/04/23 22:59 06:59 14:59 Other: Weight 117.027 kg Results CBC & Chem 7: 06/04/23 00:15 06/04/23 00:15 Labs: Abnormal Lab Results - Last 24 Hours (Table) 06/04/23 06/04/23 06/04/23 Range/Units 00:15 00:15 00:15 WBC 18.5 H (3.8-10.6) k/uL Plt Count 122 L (150-450) k/uL Neutrophils # 17.5 H (1.3-7.7) k/uL Lymphocytes # 0.3 L (1.0-4.8) k/uL D-Dimer 1.86 H (<0.60) mg/L FEU Sodium 130 L (137-145) mmol/L Carbon Dioxide 20 L (22-30) mmol/L BUN 26 H (9-20) mg/dL Glucose 184 H (74-99) mg/dL Plasma Lactic Acid Corey (0.7-2.0) mmol/L Magnesium 1.4 L (1.6-2.3) mg/dL ALT 118 H (4-49) U/L Alkaline Phosphatase 127 H (38-126) U/L Ur Specific [place] (1.001-1.035) Urine Protein (Negative) Urine Blood (Negative) Ur Leukocyte Esterase (Negative) Urine RBC (0-5) /hpf Urine WBC (0-5) /hpf Ur Squamous Epith Cells (0-4) /hpf Urine Bacteria (None) /hpf Urine Mucus (None) /hpf 06/04/23 06/04/23 06/04/23 Range/Units 00:15 03:24 03:38 WBC (3.8-10.6) k/uL Plt Count (150-450) k/uL Neutrophils # (1.3-7.7) k/uL Lymphocytes # (1.0-4.8) k/uL D-Dimer (<0.60) mg/L FEU Sodium (137-145) mmol/L Carbon Dioxide (22-30) mmol/L BUN (9-20) mg/dL Glucose (74-99) mg/dL Plasma Lactic Acid Corey 2.4 H* 2.5 H* (0.7-2.0) mmol/L Magnesium (1.6-2.3) mg/dL ALT (4-49) U/L Alkaline Phosphatase (38-126) U/L Ur Specific [place] 1.050 H (1.001-1.035) Urine Protein Trace H (Negative) Urine Blood Moderate H (Negative) Ur Leukocyte Esterase Large H (Negative) Urine RBC 22 H (0-5) /hpf Urine WBC 30 H (0-5) /hpf Ur Squamous Epith Cells 7 H (0-4) /hpf Urine Bacteria Rare H (None) /hpf Urine Mucus Rare H (None) /hpf Assessment and Plan Assessment: Assessment and plan * Acute hypoxemic respiratory failure * Urinary tract infection * Sepsis secondary to urinary tract infection * Acute hyponatremia * diabetes mellitus type 2 * Hypertension * History of COPD per chart review no documented PFT * In regards to acute hypoxemia, CT chest negative for pulm embolism, no intrathoracic process noted, plan to wean off oxygen as tolerated * In regards to urinary tract infection continue patient on Rocephin, follow-up on blood and urine cultures, infectious disease consulted * In regards to hyponatremia continue patient on fluid resuscitation follow-up on basic metabolic panel * Regards to diabetes mellitus Accu-Cheks ACHS continue patient on correctional insulin * Regards to COPD continue patient on Symbicort, albuterol as needed started on prednisone * Status is full code
[2023-06-04 13:10] LABS: African American GFR (CKD) 52 (>60 ml/min/1.73 sqM); Anion Gap 9 mmol/L; Blood Urea Nitrogen 29 mg/dL (9-20); Calcium 8.1 mg/dL (8.4-10.2); Carbon Dioxide 18 mmol/L (22-30); Chloride 103 mmol/L (98-107); Glucose 136 mg/dL (74-99); Non-African American GFR(CKD) 45 (>60 ml/min/1.73 sqM); Potassium 4.4 mmol/L (3.5-5.1); Sodium 130 mmol/L (137-145)
[2023-06-04 13:21] LABS: Basophils # (A) 0.1 k/uL (0-0.2); Basophils % (A) 0 %; Eosinophils # (A) 0.1 k/uL (0-0.7); Eosinophils % (A) 0 %; HCT 38.9 % (39.0-53.0); HGB 12.9 gm/dL (13.0-17.5); Lymphocytes # (A) 0.2 k/uL (1.0-4.8); Lymphocytes % (A) 1 %; MCHC 33.3 g/dL (31.0-37.0); Mean Platelet Volume 10.2; Monocytes # (A) 0.6 k/uL (0-1.0); Monocytes % (A) 4 %; Neutrophils # (A) 14.7 k/uL (1.3-7.7); Neutrophils % (A) 94 %; Platelet Count 120 k/uL (150-450); RBC 4.18 m/uL (4.30-5.90); RDW 12.4 % (11.5-15.5); WBC 15.7 k/uL (3.8-10.6)
[2023-06-04 16:56] LABS: Glucose,Whole Blood 251 mg/dL (70-110)
[2023-06-04] MEDS: SYMBICORT 80-4.5 MCG INHALER INHALATION SCH (19:45)
[2023-06-04 21:03] LABS: Glucose,Whole Blood 276 mg/dL (70-110)
[2023-06-04] MEDS: oxyBUTYnin chloride 5 MG TAB PO SCH (21:11)
--- NOTE | 2023-06-04 22:45 | P.CONS ---
History of Present Illness - Reason for Consult Consult date: 06/04/23 - History of Present Illness Patient is a 62-year-old male with a past medical history significant for diabetes mellitus hypertension, patient presenting to the hospital for evaluation of fatigue chills generalized bodyaches patient symptom has been getting worse for the last few days and the patient also complaining of some shortness of breath no significant cough or sputum production patient did have significant rigors and chills however family did not took any temperature at home on arrival to the ER patient did have a temperature 100.4 F no clear history of any nausea or vomiting diarrhea or any other symptoms and there is also symptoms of cloudy urine and dysuria that was given to the ER physician but the patient no abdominal pain and no diarrhea at the time my evaluation the patient is currently sleepy lethargic and most of the history was obtained from the son and the at the bedside on arrival to the ER the patient did have low-grade fever he was mildly tachycardic did have elevated lactic acid 2.2 white count of 18.5 with a left shift BUN/creatinine mildly elevated ALT is elevated at 118 AST was normal bilirubin is normal urine has been positive with large leukocyte Estrace 30 WBC influenza RSV COVID testing was negative patient did have a chest x-ray no acute pulmonary infiltrate patient also have CT angiogram of the chest suboptimal study but no central acute PE no suspicious acute pulmonary process patient was started on Rocephin infectious disease was consulted for further management of antibiotic therapy Past Medical History Past Medical History: Diabetes Mellitus, Hypertension Additional Past Medical History / Comment(s): NAUSEA, BLOOD IN STOOL History of Any Multi-Drug Resistant Organisms: MRSA Year Discovered:: 02/22/21 MDRO Source:: MRSA LEG Past Surgical History: Cholecystectomy Past Anesthesia/Blood Transfusion Reactions: No Reported Reaction Past Psychological History: No Psychological Hx Reported Smoking Status: Never smoker Past Alcohol Use History: Rare Past Drug Use History: None Reported - Past Family History Brother(s) Family Medical History: Cancer Additional Family Medical History / Comment(s): PROSTATE Father Additional Family Medical History / Comment(s): AORTIC ANEURYSM Medications and Allergies Home Medications Medication Instructions Recorded Confirmed Type Atorvastatin [Lipitor] 20 mg PO DAILY 06/04/23 06/04/23 History Losartan Potassium 100 mg PO DAILY 06/04/23 06/04/23 History Meloxicam [Mobic] 15 mg PO DAILY 06/04/23 06/04/23 History oxyBUTYnin chloride [Ditropan] 5 mg PO BID 06/04/23 06/04/23 History Allergies Allergy/AdvReac Type Severity Reaction Status Date / Time No Known Allergies Allergy Verified 06/04/23 09:48 Physical Exam Vitals: Vital Signs Temp Pulse Resp BP Pulse Ox 06/04/23 12:00 120 H 06/04/23 11:51 94 L 06/04/23 11:50 115 H 06/04/23 11:37 99.6 F 120 H 24 146/93 100 06/04/23 11:22 117 H 24 136/125 100 06/04/23 10:35 100 18 119/71 97 06/04/23 07:30 96 18 99/65 98 06/04/23 06:52 89 24 91/56 99 06/04/23 05:49 99.4 F 06/04/23 05:30 110 H 24 140/73 98 06/04/23 05:00 102 H 26 H 96/62 100 06/04/23 04:00 94 18 103/61 98 06/04/23 03:00 105 H 22 94/62 95 06/04/23 02:30 107 H 25 H 94/62 97 06/04/23 02:00 111 H 24 96/52 95 06/04/23 01:52 100.4 F H 112 H 24 93/60 97 06/04/23 00:32 100.3 F H 06/04/23 00:30 118 H 26 H 115/74 96 06/04/23 00:26 125 H 24 115/74 95 06/03/23 22:57 98.2 F 132 H 24 126/81 95 Intake and Output 06/03/23 06/04/23 06/04/23 22:59 06:59 14:59 Other: Weight 117.027 kg Results CBC & Chem 7: 06/04/23 06:34 06/04/23 06:34 Labs: Abnormal Lab Results - Last 24 Hours (Table) 06/04/23 06/04/23 06/04/23 Range/Units 00:15 00:15 00:15 WBC 18.5 H (3.8-10.6) k/uL RBC (4.30-5.90) m/uL Hgb (13.0-17.5) gm/dL Hct (39.0-53.0) % Plt Count 122 L (150-450) k/uL Neutrophils # 17.5 H (1.3-7.7) k/uL Lymphocytes # 0.3 L (1.0-4.8) k/uL D-Dimer 1.86 H (<0.60) mg/L FEU Sodium 130 L (137-145) mmol/L Carbon Dioxide 20 L (22-30) mmol/L BUN 26 H (9-20) mg/dL Creatinine (0.66-1.25) mg/dL Glucose 184 H (74-99) mg/dL POC Glucose (mg/dL) (70-110) mg/dL Plasma Lactic Acid Corey (0.7-2.0) mmol/L Calcium (8.4-10.2) mg/dL Magnesium 1.4 L (1.6-2.3) mg/dL ALT 118 H (4-49) U/L Alkaline Phosphatase 127 H (38-126) U/L Ur Specific [place] (1.001-1.035) Urine Protein (Negative) Urine Blood (Negative) Ur Leukocyte Esterase (Negative) Urine RBC (0-5) /hpf Urine WBC (0-5) /hpf Ur Squamous Epith Cells (0-4) /hpf Urine Bacteria (None) /hpf Urine Mucus (None) /hpf 06/04/23 06/04/23 06/04/23 Range/Units 00:15 03:24 03:38 WBC (3.8-10.6) k/uL RBC (4.30-5.90) m/uL Hgb (13.0-17.5) gm/dL Hct (39.0-53.0) % Plt Count (150-450) k/uL Neutrophils # (1.3-7.7) k/uL Lymphocytes # (1.0-4.8) k/uL D-Dimer (<0.60) mg/L FEU Sodium (137-145) mmol/L Carbon Dioxide (22-30) mmol/L BUN (9-20) mg/dL Creatinine (0.66-1.25) mg/dL Glucose (74-99) mg/dL POC Glucose (mg/dL) (70-110) mg/dL Plasma Lactic Acid [place]y 2.4 H* 2.5 H* (0.7-2.0) mmol/L Calcium (8.4-10.2) mg/dL Magnesium (1.6-2.3) mg/dL ALT (4-49) U/L Alkaline Phosphatase (38-126) U/L Ur Specific [place] 1.050 H (1.001-1.035) Urine Protein Trace H (Negative) Urine Blood Moderate H (Negative) Ur Leukocyte Esterase Large H (Negative) Urine RBC 22 H (0-5) /hpf Urine WBC 30 H (0-5) /hpf Ur Squamous Epith Cells 7 H (0-4) /hpf Urine Bacteria Rare H (None) /hpf Urine Mucus Rare H (None) /hpf 06/04/23 06/04/23 06/04/23 Range/Units 06:34 06:34 10:46 WBC 15.7 H (3.8-10.6) k/uL RBC 4.18 L (4.30-5.90) m/uL Hgb 12.9 L (13.0-17.5) gm/dL Hct 38.9 L (39.0-53.0) % Plt Count 120 L (150-450) k/uL Neutrophils # 14.7 H (1.3-7.7) k/uL Lymphocytes # 0.2 L (1.0-4.8) k/uL D-Dimer (<0.60) mg/L FEU Sodium 130 L (137-145) mmol/L Carbon Dioxide 18 L (22-30) mmol/L BUN 29 H (9-20) mg/dL Creatinine 1.63 H (0.66-1.25) mg/dL Glucose 136 H (74-99) mg/dL POC Glucose (mg/dL) 166 H (70-110) mg/dL Plasma Lactic Acid [place] (0.7-2.0) mmol/L Calcium 8.1 L (8.4-10.2) mg/dL Magnesium (1.6-2.3) mg/dL ALT (4-49) U/L Alkaline Phosphatase (38-126) U/L Ur Specific [place] (1.001-1.035) Urine Protein (Negative) Urine Blood (Negative) Ur Leukocyte Esterase (Negative) Urine RBC (0-5) /hpf Urine WBC (0-5) /hpf Ur Squamous Epith Cells (0-4) /hpf Urine Bacteria (None) /hpf Urine Mucus (None) /hpf 06/04/23 06/04/23 Range/Units 11:38 12:53 WBC (3.8-10.6) k/uL RBC (4.30-5.90) m/uL Hgb (13.0-17.5) gm/dL Hct (39.0-53.0) % Plt Count (150-450) k/uL Neutrophils # (1.3-7.7) k/uL Lymphocytes # (1.0-4.8) k/uL D-Dimer (<0.60) mg/L FEU Sodium (137-145) mmol/L Carbon Dioxide (22-30) mmol/L BUN (9-20) mg/dL Creatinine (0.66-1.25) mg/dL Glucose (74-99) mg/dL POC Glucose (mg/dL) 138 H (70-110) mg/dL Plasma Lactic Acid [place] 2.2 H* (0.7-2.0) mmol/L Calcium (8.4-10.2) mg/dL Magnesium (1.6-2.3) mg/dL ALT (4-49) U/L Alkaline Phosphatase (38-126) U/L Ur Specific [place] (1.001-1.035) Urine Protein (Negative) Urine Blood (Negative) Ur Leukocyte Esterase (Negative) Urine RBC (0-5) /hpf Urine WBC (0-5) /hpf Ur Squamous Epith Cells (0-4) /hpf Urine Bacteria (None) /hpf Urine Mucus (None) /hpf Assessment and Plan Plan: 1patient presented to hospital with sepsis in this patient who did have fever tachycardia elevated white count elevated lactic acid source likely urinary patient did have positive UA and symptoms of cloudy urine and burning also have elevated creatinine concerning for possible complicated UTI 2-we will obtain ultrasound of the kidney bladder area because of his elevated creatinine and rule out any structural abnormality 3-Rocephin 2 g daily should provide adequate antibiotic coverage empirically Family at the bedside questions answered We will follow on clinical condition and cultures to further adjust medication if needed Thank you for this consultation we will follow the patient along with you Dictation was produced using [employer] dictation software. please excuse any grammatical, word or spelling errors. Time with Patient: Greater than 30
[2023-06-05 07:30] LABS: Glucose,Whole Blood 165 mg/dL (70-110)
--- NOTE | 2023-06-05 07:35 | US ---
EXAMINATION TYPE: US kidneys/renal and bladder DATE OF EXAM: 06/05/2023 COMPARISON: NONE CLINICAL INDICATION: Male, 62 years old with history of uti and bacteremia; sepsis, uti EXAM MEASUREMENTS: Right Kidney: 9.5 x 4.3 x 5.8 cm Left Kidney: 12.1 x 4.9 x 6.7 cm there is a 3.5 x 2.9 x 3.1 cm simple appearing cyst superior pole le ft kidney. Right Kidney: No hydronephrosis or masses seen Left Kidney: No hydronephrosis or masses seen Bladder: wnl IMPRESSION: 1. Left renal cyst
--- NOTE | 2023-06-05 07:49 | P.PN ---
Subjective * 62-year-old gentleman with past medical history significant for diabetes mellitus, history of hypertension, COPD presents to the emergency department with complaints of fatigue, chills, shortness of breath, malaise generalized weakness. Patient states he had been having intermittent symptoms ongoing for few days. Patient did not seek medical attention since he had minimal improvement. Patient has also been complaining of dysuria and noted to have cloudy urine. * At the time of presentation in ER patient was noted to be hypotensive with sys tolic pressure of 96 and pulse of 102. Initial workup included WBC count of 18.5 hemoglobin 14.6 platelet count of 122 with elevated neutrophil bands. Serum chemistry shows sodium 130 potassium 4.4, dioxide 20 BUN 26 creatinine 1.13 glucose 184 magnesium of 1.4 patient had initial troponin done which was negative * Urinalysis obtained showed moderate amount of blood large leukocyte esterase urine bacteria * Patient tested negative for influenza RSV and COVID * Patient was given fluid bolus started on IV antibiotic and admitted to medical floor for further evaluation. 06/05/2024 Patient awake alert lying in bed with no respiratory distress He has minimal exertional dyspnea but no orthopnea History of difficulty to urinate but no suprapubic or flank pain. No dysuria or change in frequency He's afebrile Renal ultrasound showed left renal cyst, no evidence of hydronephrosis, reviewed by myself and agree with findings No other new complaints He remains on ceftriaxone 2 g, prednisone 40 mg which we will allow her to surgery. Patient remains normal saline with 130 mL/h we will order to 75 mL/h Review of systems CONSTITUTIONAL: No fever, no malaise, no fatigue. HEENT: No recent visual problems or hearing problems. Denied any sore throat. CARDIOVASCULAR: No orthopnea, PND, no palpitations, no syncope. PULMONARY: No shortness of breath, no cough, no hemoptysis. GASTROINTESTINAL: No diarrhea, no nausea, no vomiting, no abdominal pain. Normoactive bowel sounds. NEUROLOGICAL: No headaches, no weakness, no numbness. Active Medications Generic Name Dose Route Start Last Admin Trade Name Freq PRN Reason Stop Dose Admin Acetaminophen 650 mg 06/04/23 04:20 Acetaminophen Tab 325 Mg Tab PO Q6HR PRN Mild Pain or Fever > 100.5 Albuterol/Ipratropium 3 ml 06/04/23 09:28 06/05/23 07:23 Ipratropium-Albuterol 3 Ml Neb INHALATION 3 ml RT-Q2H PRN Administration Shortness Of Breath Or Wheezing Atorvastatin Calcium 20 mg 06/05/23 09:00 Atorvastatin 20 Mg Tab PO DAILY B[facility]O Budesonide/Formoterol Fumarate 2 puff 06/04/23 20:00 06/05/23 07:23 Symbicort 80-4.5 Mcg Inhaler INHALATION 2 puff RT-BID BOBO Administration Calcium Carbonate/Glycine 1,000 mg 06/04/23 09:23 Calcium Carbonate 500 Mg Chewable PO Q4HR PRN Dyspepsia Dextrose/Water 25 ml 06/04/23 09:23 Dextrose 50% Syringe 50 Ml IVP PER PROTOCOL PRN Hypoglycemia Protocol Dextrose/Water 50 ml 06/04/23 09:23 Dextrose 50% Syringe 50 Ml IVP PER PROTOCOL PRN Hypoglycemia Protocol Enoxaparin Sodium 40 mg 06/05/23 09:00 Enoxaparin 40 Mg/0.4 Ml Syringe SQ DAILY [facility] Guaifenesin 600 mg 06/04/23 09:30 06/04/23 21:10 Guaifenesin 600 Mg Tablet.Er PO 600 mg Q12HR BOBO Administration Sodium Chloride 1,000 mls @ 130 mls/hr 06/04/23 01:45 06/05/23 07:39 Saline 0.9% IV Not Given .Q7H42M [facility]O Ceftriaxone Sodium 2 gm/ 50 mls @ 100 mls/hr 06/04/23 23:00 06/04/23 22:59 Sodium Chloride IVPB 100 mls/hr Q24H BOBO Administration Protocol Insulin Aspart 0 unit 06/04/23 12:30 06/05/23 07:33 Insulin Aspart (Novolog) 100 Unit/Ml Vial SQ 1 unit ACHS BOBO Administration Protocol Losartan Potassium 100 mg 06/05/23 09:00 Losartan 50 Mg Tab PO DAILY BOBO Naloxone HCl 0.2 mg 06/04/23 04:20 Naloxone 0.4 Mg/Ml 1 Ml Vial IV Q2M PRN Opioid Reversal Ondansetron HCl 4 mg 06/04/23 04:20 Ondansetron 4 Mg/2 Ml Vial IVP Q8HR PRN Nausea And Vomiting Oxybutynin Chloride 5 mg 06/04/23 21:00 06/04/23 21:11 Oxybutynin Chloride 5 Mg Tab PO 5 mg BID BOBO Administration Prednisone 40 mg 06/04/23 09:30 06/04/23 10:37 Prednisone 20 Mg Tab PO 06/08/23 09:01 40 mg DAILY BOBO Administration Objective - Vital Signs Vital signs: Vital Signs Temp 98.0 F 06/04/23 20:28 Pulse 85 06/05/23 07:36 Resp 22 06/05/23 07:26 BP 107/75 06/05/23 07:26 Pulse Ox 99 06/05/23 07:26 FiO2 - Exam -GENERAL: The patient is alert and oriented x3, not in any acute distress. Obe se HEENT: Pupils are round and equally reacting to light. EOMI. No scleral icterus. No conjunctival pallor. Normocephalic, atraumatic. No pharyngeal erythema. No thyromegaly. CARDIOVASCULAR: S1 and S2 present. No murmurs, rubs, or gallops. PULMONARY: Chest is clear to auscultation, no wheezing , no crackles. ABDOMEN: Soft, nontender, nondistended, normoactive bowel sounds. No palpable organomegaly. MUSCULOSKELETAL: No joint swelling or deformity. EXTREMITIES: No cyanosis, clubbing, or pedal edema. NEUROLOGICAL: Gross neurological examination did not reveal any focal deficits. SKIN: No rashes. no petechiae. - Labs CBC & Chem 7: 06/04/23 06:34 06/04/23 06:34 Labs: Abnormal Lab Results - Last 24 Hours (Table) 06/04/23 06/04/23 06/04/23 Range/Units 06:34 06:34 10:46 WBC 15.7 H (3.8-10.6) k/uL RBC 4.18 L (4.30-5.90) m/uL Hgb 12.9 L (13.0-17.5) gm/dL Hct 38.9 L (39.0-53.0) % Plt Count 120 L (150-450) k/uL Neutrophils # 14.7 H (1.3-7.7) k/uL Lymphocytes # 0.2 L (1.0-4.8) k/uL Sodium 130 L (137-145) mmol/L Carbon Dioxide 18 L (22-30) mmol/L BUN 29 H (9-20) mg/dL Creatinine 1.63 H (0.66-1.25) mg/dL Glucose 136 H (74-99) mg/dL POC Glucose (mg/dL) 166 H (70-110) mg/dL Plasma Lactic Acid Corey (0.7-2.0) mmol/L Calcium 8.1 L (8.4-10.2) mg/dL 06/04/23 06/04/23 06/04/23 Range/Units 11:38 12:53 16:54 WBC (3.8-10.6) k/uL RBC (4.30-5.90) m/uL Hgb (13.0-17.5) gm/dL Hct (39.0-53.0) % Plt Count (150-450) k/uL Neutrophils # (1.3-7.7) k/uL Lymphocytes # (1.0-4.8) k/uL Sodium (137-145) mmol/L Carbon Dioxide (22-30) mmol/L BUN (9-20) mg/dL Creatinine (0.66-1.25) mg/dL Glucose (74-99) mg/dL POC Glucose (mg/dL) 138 H 251 H (70-110) mg/dL Plasma Lactic Acid Corey 2.2 H* (0.7-2.0) mmol/L Calcium (8.4-10.2) mg/dL 06/04/23 06/05/23 Range/Units 20:59 07:28 WBC (3.8-10.6) k/uL RBC (4.30-5.90) m/uL Hgb (13.0-17.5) gm/dL Hct (39.0-53.0) % Plt Count (150-450) k/uL Neutrophils # (1.3-7.7) k/uL Lymphocytes # (1.0-4.8) k/uL Sodium (137-145) mmol/L Carbon Dioxide (22-30) mmol/L BUN (9-20) mg/dL Creatinine (0.66-1.25) mg/dL Glucose (74-99) mg/dL POC Glucose (mg/dL) 276 H 165 H (70-110) mg/dL Plasma Lactic Acid Corey (0.7-2.0) mmol/L Calcium (8.4-10.2) mg/dL Assessment and Plan Assessment: Acute hypoxemic respiratory failure secondary to acute COPD exacerbation improving Urinary tract infection Sepsis secondary to urinary tract infection mild hypovolemic hyponatremia diabetes mellitus type 2 Hypertension History of COPD per chart review no documented PFT Obesity with BMI of 42.9 Plan: Continue ceftriaxone Follow-up urine culture None prednisone to 30 mg daily Lower normal saline 75 mL/h Infectious disease consult Labs and medication were reviewed.. Continue same treatment. Continue with symptomatic treatment. Resume home medication. Monitor labs and vitals. DVT and GI prophylaxis. Further recommendations as per clinical course of the patient DVT prophylaxis: Subcutaneous lovenox GI Prophylaxis: Pepcid PT/OT: Pending Prognosis is guarded
[2023-06-05] MEDS: ENOXAPARIN 40 MG/0.4 ML SYRINGE SQ SCH (08:17)
[2023-06-05] MEDS: FAMOTIDINE 20 MG/2 ML VIAL IV SCH (08:17)
[2023-06-05] MEDS: LOSARTAN 50 MG TAB PO SCH (08:17)
[2023-06-05] MEDS: ATORVASTATIN 20 MG TAB PO SCH (08:17)
[2023-06-05] MEDS: predniSONE 10 MG TAB PO SCH (08:17)
[2023-06-05 11:18] LABS: ALT 93 U/L (10-49); AST 33 U/L (14-35); Albumin 3.4 g/dL (3.8-4.9); Albumin/Globulin Ratio 1.48 Ratio (1.60-3.17); Alkaline Phosphatase 109 U/L (41-126); Blood Urea Nitrogen 26.4 mg/dL (9.0-27.0); Calcium 8.3 mg/dL (8.7-10.3); Carbon Dioxide 23.5 mmol/L (21.6-31.8); Chloride 105 mmol/L (96-109); Globulin 2.3 g/dL (1.6-3.3); Glucose 174 mg/dL (70-110); Potassium 4.3 mmol/L (3.5-5.5); Sodium 138 mmol/L (135-145); Total Bilirubin 0.3 mg/dL (0.3-1.2); Total Protein 5.7 g/dL (6.2-8.2)
[2023-06-05 11:25] LABS: Basophils # (A) 0.05 X 10*3/uL (0.00-0.10); Basophils % (A) 0.4 %; Eosinophils # (A) 0.05 X 10*3/uL (0.04-0.35); Eosinophils % (A) 0.4 %; HCT 37.8 % (39.6-50.0); HGB 12.8 g/dL (13.0-17.0); Lymphocytes # (A) 1.16 X 10*3/uL (0.90-5.00); Lymphocytes % (A) 8.5 %; MCH 30.9 pg (27.0-32.0); MCHC 33.9 g/dL (32.0-37.0); MCV 91.3 FL (80.0-97.0); Mean Platelet Volume 10.5 FL (9.5-12.2); Monocytes # (A) 1.05 X 10*3/uL (0.20-1.00); Monocytes % (A) 7.7 %; NRBC Per 100 WBC 0 X 10*3/uL (0.00-0.01); Neutrophils # (A) 11.26 X 10*3/uL (1.80-7.70); Neutrophils % (A) 82.1 %; Platelet Count 104 X 10*3/uL (140-440); RBC 4.14 X 10*6/uL (4.40-5.60); RDW 12.1 % (11.5-14.5); WBC 13.69 X 10*3/uL (4.50-10.00)
[2023-06-05 12:00] LABS: Glucose,Whole Blood 332 mg/dL (70-110)
--- NOTE | 2023-06-05 12:31 | P.PN ---
Subjective Progress Note Date: 06/05/23 Principal diagnosis: Reason for follow-up is urinary tract infection Patient is a 62-year-old male with a past medical history significant for diabetes mellitus hypertension, patient presenting to the hospital for evaluation of fatigue chills generalized bodyaches, also have urinary symptoms CT of the chest did not show any pneumonia did have a positive UA concerning for symptomatic urinary tract infection On today's evaluation that is 06/05/2023, the patient continues to be afebrile, the patient is on 2 L nasal cannula oxygen and breathing comfortably, the Pt de nies having any chest pain continue to have some cough, the patient denies having any abdominal pain no vomiting or any diarrhea has been reported by the nursing staff. Patient white count is down to 13.69, creatinine is 1.2 cultures pending ultrasound of the kidney bladder left renal cyst Objective - Vital Signs Vital signs: Vital Signs Temp 98.0 F 06/04/23 20:28 Pulse 87 06/05/23 08:20 Resp 22 06/05/23 08:20 BP 123/69 06/05/23 08:20 Pulse Ox 100 06/05/23 08:20 FiO2 - Exam GENERAL DESCRIPTION: Middle-age male lying in bed in no distress RESPIRATORY SYSTEM: Unlabored breathing , decreased breath sounds at bases HEART: S1 S2 regular rate and rhythm , ABDOMEN: Soft , no tenderness EXTREMITIES: No edema feet - Labs CBC & Chem 7: 06/05/23 07:26 06/05/23 07:26 Labs: Abnormal Lab Results - Last 24 Hours (Table) 06/04/23 06/04/23 06/04/23 Range/Units 06:34 06:34 10:46 WBC 15.7 H (3.8-10.6) k/uL RBC 4.18 L (4.30-5.90) m/uL Hgb 12.9 L (13.0-17.5) gm/dL Hct 38.9 L (39.0-53.0) % Plt Count 120 L (150-450) k/uL Neutrophils # 14.7 H (1.3-7.7) k/uL Lymphocytes # 0.2 L (1.0-4.8) k/uL Sodium 130 L (137-145) mmol/L Carbon Dioxide 18 L (22-30) mmol/L BUN 29 H (9-20) mg/dL Creatinine 1.63 H (0.66-1.25) mg/dL Glucose 136 H (74-99) mg/dL POC Glucose (mg/dL) 166 H (70-110) mg/dL Plasma Lactic Acid Corey (0.7-2.0) mmol/L Calcium 8.1 L (8.4-10.2) mg/dL 06/04/23 06/04/23 06/04/23 Range/Units 11:38 12:53 16:54 WBC (3.8-10.6) k/uL RBC (4.30-5.90) m/uL Hgb (13.0-17.5) gm/dL Hct (39.0-53.0) % Plt Count (150-450) k/uL Neutrophils # (1.3-7.7) k/uL Lymphocytes # (1.0-4.8) k/uL Sodium (137-145) mmol/L Carbon Dioxide (22-30) mmol/L BUN (9-20) mg/dL Creatinine (0.66-1.25) mg/dL Glucose (74-99) mg/dL POC Glucose (mg/dL) 138 H 251 H (70-110) mg/dL Plasma Lactic Acid Corey 2.2 H* (0.7-2.0) mmol/L Calcium (8.4-10.2) mg/dL 06/04/23 06/05/23 Range/Units 20:59 07:28 WBC (3.8-10.6) k/uL RBC (4.30-5.90) m/uL Hgb (13.0-17.5) gm/dL Hct (39.0-53.0) % Plt Count (150-450) k/uL Neutrophils # (1.3-7.7) k/uL Lymphocytes # (1.0-4.8) k/uL Sodium (137-145) mmol/L Carbon Dioxide (22-30) mmol/L BUN (9-20) mg/dL Creatinine (0.66-1.25) mg/dL Glucose (74-99) mg/dL POC Glucose (mg/dL) 276 H 165 H (70-110) mg/dL Plasma Lactic Acid Corey (0.7-2.0) mmol/L Calcium (8.4-10.2) mg/dL Assessment and Plan (1) UTI (urinary tract infection) Current Visit: Yes Status: Acute Code(s): N39.0 - URINARY TRACT INFECTION, SITE NOT SPECIFIED SNOMED Code(s): 70069736 Plan: 1patient presented to hospital with sepsis in this patient who did have fever tachycardia elevated white count elevated lactic acid source likely urinary patient did have positive UA and symptoms of cloudy urine and burning also have elevated creatinine concerning for possible complicated UTI 2- ultrasound of the kidney bladder area did show left renal cyst no hyd ronephrosis 3-patient to continue with Rocephin 2 g daily while waiting for the culture to finalize Dictation was produced using [employer] dictation software. please excuse any grammatical, word or spelling errors. Time with Patient: Less than 30
[2023-06-05 14:16] LABS: Glucose,Whole Blood 365 mg/dL (70-110)
[2023-06-05] MEDS: ACETAMINOPHEN TAB 325 MG TAB PO PRN (16:20)
[2023-06-05 17:06] LABS: Glucose,Whole Blood 280 mg/dL (70-110)
[2023-06-05 21:17] LABS: Glucose,Whole Blood 366 mg/dL (70-110)
[2023-06-06 05:45] LABS: Glucose,Whole Blood 139 mg/dL (70-110)
[2023-06-06] MEDS: polyethylene glycoL 3350 17 GM POWD.PACK PO STA (06:42)
[2023-06-06 08:20] VITALS: TEMP 97.8
[2023-06-06] MEDS: SENNOSIDES-DOCUSATE SODIUM 1 EACH TAB PO SCH (09:03)
[2023-06-06 11:40] LABS: Glucose,Whole Blood 149 mg/dL (70-110)
--- NOTE | 2023-06-06 12:31 | P.PN ---
Subjective Progress Note Date: 06/06/23 Principal diagnosis: Reason for follow-up is urinary tract infection Patient is a 62-year-old male with a past medical history significant for diabetes mellitus hypertension, patient presenting to the hospital for evaluation of fatigue chills generalized bodyaches, also have urinary symptoms CT of the chest did not show any pneumonia did have a positive UA concerning for symptomatic urinary tract infection On today's evaluation that is 06/06/2023, Patient is afebrile patient is currently on 2 L nasal cannula oxygen and denies having any shortness of breath, the patient denies any chest pain did have occasional cough, the patient denies any nausea vomiting did not have any abdominal pain and no diarrhea. No new labs obtained today urine is growing Streptococcus agalactiae Objective - Vital Signs Vital signs: Vital Signs Temp 97.8 F 06/06/23 08:00 Pulse 77 06/06/23 08:00 Resp 17 06/06/23 08:00 BP 136/88 06/06/23 08:00 Pulse Ox 99 06/06/23 08:00 FiO2 Intake & Output 06/05/23 06/06/23 06/06/23 18:59 06:59 18:59 Intake Total 500 Balance 500 Weight 117.027 kg Intake: Oral 500 Other: # Voids 1 1 - Exam GENERAL DESCRIPTION: Middle-age male lying in bed in no distress RESPIRATORY SYSTEM: Unlabored breathing , decreased breath sounds at bases HEART: S1 S2 regular rate and rhythm , ABDOMEN: Soft , no tenderness EXTREMITIES: No edema feet - Labs CBC & Chem 7: 06/05/23 07:26 06/05/23 07:26 Labs: Abnormal Lab Results - Last 24 Hours (Table) 06/05/23 06/05/23 06/05/23 Range/Units 14:14 17:05 21:16 POC Glucose (mg/dL) 365 H 280 H 366 H (70-110) mg/dL 06/06/23 06/06/23 Range/Units 05:43 11:39 POC Glucose (mg/dL) 139 H 149 H (70-110) mg/dL Microbiology - Last 24 Hours (Table) 06/04/23 03:38 Urine Culture - Final Urine,Clean Catch Strep agalactiae - (group b) 06/04/23 02:05 Blood Culture - Preliminary Blood 06/04/23 01:49 Blood Culture - Preliminary Blood Assessment and Plan (1) UTI (urinary tract infection) Current Visit: Yes Status: Acute Code(s): N39.0 - URINARY TRACT INFECTION, SITE NOT SPECIFIED SNOMED Code(s): 97884795 Plan: 1patient presented to hospital with sepsis in this patient who did have fever tachycardia elevated white count elevated lactic acid source likely urinary patient did have positive UA and symptoms of cloudy urine and burning also have elevated creatinine concerning for possible complicated UTI 2- ultrasound of the kidney bladder area did show left renal cyst no hydronephrosis 3-patient Urine culture grew Streptococcus agalactiae to continue with Rocephin 2 g daily with a plan to finish up with oral Ceftin Dictation was produced using [employer] dictation software. please excuse any grammatical, word or spelling errors. Time with Patient: Less than 30
[2023-06-06 15:30] VITALS: BP 137/88; PULSE 99; RESP 18
--- NOTE | 2023-06-07 06:58 | P.DS ---
Providers Date of admission: 06/04/23 04:21 Attending physician: Roberta Cuenca Consults: 06/04/23 12:39 Consult Physician Routine Consulting Provider: Kalani Mcintyre Consult Reason/Comments: Sepsis, urinary tract infection Do you want consulting provider notified?: Yes Primary care physician: Rui Spencer Hospital Course: Diagnoses: Acute Urinary tract infection/possible pyelonephritis Sepsis secondary to urinary tract infection. Resolved Acute hypoxemic respiratory failure secondary to acute COPD exacerbation improving. Mild and resolved mild hypovolemic hyponatremia. Sodium back to normal upon discharge diabetes mellitus type 2 Hypertension History of COPD per chart review no documented PFT Obesity with BMI of 42.9 Hospital course: 62-year-old gentleman with past medical history significant for diabetes mellitus, history of hypertension, COPD presents to the emergency department with complaints of fatigue, chills, shortness of breath, malaise generalized weakness. Patient states he had been having intermittent symptoms ongoing for few days. Patient has also been complaining of dysuria and noted to have cloudy urine. Patient's was diagnosed with acute urinary tract infection/pyelonephritis and was treated with IV antibiotic, urine culture came back positive for Streptococcus agalactiae. Infectious disease team were followed closely. Patient will be discharged on Ceftin 7 days per ID team recommendation. Also patient had mild COPD exacerbation, this was switched his steroids and to oral prednisone since yesterday. Patient denies any dyspnea coughing or chest pain. His get up and go test is normal. 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 Patient will be discharged on tapering prednisone Patient also denies chest pain. No other new complaints. His UTI symptoms also improved. Patient denies any other complaints and he wants to go home today. Patient was cleared for discharge by ID team as above. Problems and management plan were discussed with the patient and he verbalized understanding and acceptance Patient was found stable and can be discharged home in guarded prognosis however he needs follow-up as an outpatient. Patient was instructed to follow up with PCP Dr. Spencer within one week and patient agrees Patient also referred to be evaluated by urologist Dr. 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 De La Rosa as an outpatient, patient verbalized understanding and acceptance. Please refer to the discharge instruction Physical exam Gen: patient is a AAOx3, no distress CVS: S1-S2, RRR, no murmur Lungs: B/L CTA, no wheezing Abdomen: soft, no distention, no tenderness, positive bowel sounds Extremity: no leg edema or induration Time spent more than 35 minutes Patient Condition at Discharge: Stable Plan - Discharge Summary Discharge Rx Participant: No New Discharge Prescriptions: New cefUROXime axetiL [Ceftin] 500 mg PO BID 7 Days #14 tab predniSONE 10 mg PO DIRECTED #18 tab Sennosides-Docusate Sodium [Senokot-S] 2 each PO BID 3 Days #6 tab Continue Losartan Potassium 100 mg PO DAILY Atorvastatin [Lipitor] 20 mg PO DAILY oxyBUTYnin chloride [Ditropan] 5 mg PO BID Discontinued Meloxicam [Mobic] 15 mg PO DAILY Discharge Medication List Atorvastatin [Lipitor] 20 mg PO DAILY 06/04/23 [History] Losartan Potassium 100 mg PO DAILY 06/04/23 [History] oxyBUTYnin chloride [Ditropan] 5 mg PO BID 06/04/23 [History] Sennosides-Docusate Sodium [Senokot-S] 2 each PO BID 3 Days #6 tab 06/06/23 [Rx] cefUROXime axetiL [Ceftin] 500 mg PO BID 7 Days #14 tab 06/06/23 [Rx] predniSONE 10 mg PO DIRECTED #18 tab 06/06/23 [Rx] Follow up Appointment(s)/Referral(s): Rui Spencer MD [Primary Care Provider] - 06/11/23 10:30 am Diego Jordan DO [STAFF PHYSICIAN] - 06/06/23 (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 ) Tony Sofia MD [STAFF PHYSICIAN] - 06/25/23 9:00 am (urologist ) Patient Instructions/Handouts: Urinary Tract Infection in Men (DC) Activity/Diet/Wound Care/Special Instructions: heart healthy diet activity is restricted till you see your doctor Discharge Disposition: HOME SELF-CARE
== END 2023-06-06 15:51 | disposition home or self-care (01) | DRG 720 ==
LOC: EC 22:50 → 4SSUR 06-04 04:21
PROVIDERS: ADMIT Internal Medicine; ATTEND Internal Medicine
DX: A41.9 Sepsis, unspecified organism (principal); E66.9 Obesity, unspecified; Z68.41 Body mass index [BMI] 40.0-44.9, adult; E86.0 Dehydration; E86.1 Hypovolemia; E87.1 Hypo-osmolality and hyponatremia; I10 Essential (primary) hypertension; I45.10 Unspecified right bundle-branch block; Z11.52 Encounter for screening for COVID-19; Z28.311 Partially vaccinated for COVID-19; J44.1 Chronic obstructive pulmonary disease with (acute) exacerbation; J96.01 Acute respiratory failure with hypoxia; N28.1 Cyst of kidney, acquired; N12 Tubulo-interstitial nephritis, not specified as acute or chronic; Z79.1 Long term (current) use of non-steroidal anti-inflammatories (NSAID); Z79.84 Long term (current) use of oral hypoglycemic drugs; Z79.899 Other long term (current) drug therapy; Z86.14 Personal history of Methicillin resistant Staphylococcus aureus infection
CPT/HCPCS: 36415; 71046; 71275; 76770; 80048; 80053; 81001; 83036; 83605; 83735; 83880; 84484; 85025; 85379; 85610; 85730; 87040; 87086; 87636; 93005; 94640; 94760; 96361; 96365; 96366; 96372; 96375; 99291